=== PATIENT | female | born 1945 | race Caucasian/White ===

== ENCOUNTER → 2016-11-29 | Outpatient (CLI) | payer OTHER, MEDICARE ==
[~2016-11-29] MED LIST: AMLO-110 PO; CARV6.252 PO; CHOL100010 PO; COEN75CA PO; CPROT OPL; CTPTP2 TOP; CYAN10005 PO; HYDR-4715 PO; MISCCAP80 PO; PRED1SUS3 OPL; [UNRECOGNIZED DRUG - CODE] OPL; [UNRECOGNIZED DRUG - OTHER] PO
[2016-11-29 11:46] LABS: BASO % 0.5 %; BASO ABS # 0.03 K/uL (0-0.2); COMPLETE YES; EOS % 3.2 %; HEMATOCRIT 38.8 % (37-47); IG% 0.3 %; LYMPH % 29.2 %; LYMPH ABS # 1.81 K/uL (1.2-3.4); MEAN CELL VOLUME 89.4 fL (80-100); MEAN CORPUSCULAR HGB CONC 32.5 g/dl (32-36); MEAN PLATELET VOLUME 9.9 fL (7.4-10.4); MONO % 5.5 %; NEUT % 61.3 %; PLATELET COUNT 268 K/uL (130-400); RED BLOOD COUNT 4.34 M/uL (4.2-5.4)
[2016-11-29 12:30] LABS: ALT/SGPT 27 U/L (12-78); AST/SGOT 23 U/L (15-37); BLOOD UREA NITROGEN 23 mg/dl (7-18); BUN/CREATININE RATIO 22.7 (10-20); CARBON DIOXIDE 29 mmol/L (21-32); CHLORIDE 106 mmol/L (98-107); CHOLESTEROL 242 mg/dl (0-200); GLUCOSE 97 mg/dl (70-99); POTASSIUM 4.2 mmol/L (3.5-5.1); SODIUM 142 mmol/L (136-145); TRIGLYCERIDES 119 mg/dl (0-150); VERY LOW DENSITY LIPOPROT CALC 24 mg/dl
[2016-11-29 12:40] LABS: ALB/GLOB RATIO 1.2 (0.9-2); ALKALINE PHOSPHATASE 51 U/L (45-117); CHOLESTEROL/HDL RATIO 3.8; HDL CHOLESTEROL 63 mg/dl; LDL CHOLESTEROL CALCULATED 155 mg/dl
[2016-11-29 13:19] LABS: CALCIUM 9.7 mg/dl (8.5-10.1)
== END | disposition home or self-care (01) ==
LOC: C.LAB 09:50
PROVIDERS: ATTEND Internal Medicine
DX: I10 Essential (primary) hypertension (principal); E26.9 Hyperaldosteronism, unspecified

== ENCOUNTER → 2016-12-30 | Outpatient (CLI) | payer OTHER, MEDICARE ==
--- NOTE | 2016-12-30 14:43 | MAMMOGRAPHY REPORT ---
BILATERAL DIGITAL SCREENING MAMMOGRAM WITH CAD: 12/30/2016 CLINICAL HISTORY: Routine screening. Patient has no complaints. TECHNIQUE: Current study was also evaluated with a Computer Aided Detection (CAD) system. Bilateral CC and MLO views were obtained. COMPARISON: Comparison is made to exams dated: 12/30/2015 mammogram, 12/26/2014 mammogram, 12/25/2013 m ammogram, 12/21/2012 mammogram, 12/21/2011 mammogram, and 12/17/2010 mammogram - [facility] er. BREAST COMPOSITION: There are scattered areas of fibroglandular density in both breasts. FINDINGS: No suspicious masses, calcifications, or areas of architectural distortion are noted in ei ther breast. There has been no significant interval change compared to prior exams. Benign-appearing 13 mm mass in the right lower inner quadrant is stable dating back to the 2007 exam. 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 IMPRESSION: ACR BI-RADS CATEGORY 2: BENIGN There is no mammographic evidence of malignancy. A 1 year screening mammogram is recommended. The pa tient will receive written notification of the results. Approximately 10% of breast cancers are not detected with mammography. A negative mammographic report should not delay biopsy if a clinically suggestive mass is present. Peggy Santacruz M.D. /:12/30/2016 12:24:32 Director Corporate Sales: Marianne SIMPSON(Mike)(Marlys)([place]), [facility] letter sent: Normal 1/2 BI-RADS Code: ACR BI-RADS Category 2: Benign
== END | disposition home or self-care (01) ==
LOC: C.MAMM 09:40
PROVIDERS: ATTEND Physician Assistant
DX: Z12.31 Encounter for screening mammogram for malignant neoplasm of breast (principal)

== ENCOUNTER → 2018-01-16 | Outpatient (CLI) | payer OTHER, MEDICARE ==
[~2018-01-16] MED LIST changes: -AMLO-110 PO; +AMLO5TAB3 PO
--- NOTE | 2018-01-17 07:48 | MAMMOGRAPHY REPORT ---
UNILATERAL RIGHT DIGITAL DIAGNOSTIC MAMMOGRAM TOMOSYNTHESIS AND TARGETED RIGHT ULTRASOUND: 01/16/2018 CLINICAL HISTORY: 72-year-old woman called back from screening mammography for a possible area of arc hitectural distortion in the lateral, posterior right breast only seen in the CC projection. TECHNIQUE: Spot compression right CC and MLO tomosynthesis images were obtained. COMPARISON: Comparison is made to exams dated: 01/03/2018 mammogram, 12/30/2016 mammogram, 12/30/2015 m ammogram, 12/26/2014 mammogram, 12/25/2013 mammogram, and 12/21/2012 mammogram - [facility]. BREAST COMPOSITION: There are scattered areas of fibroglandular density in the right breast. FINDINGS: There is subtle persistent area of architectural distortion in the lateral, posterior righ t breast on the CC tomosynthesis images (slice 35/75), which centrally measures 6 mm but the maximum dimension is 2.5 cm including the distortion spicules. No definitive corresponding abnormality is se en on the spot compression MLO tomosynthesis images. Further evaluation with ultrasound was performe d. There is a stable benign circumscribed mass in the lower inner right breast and a stable grouping of coarse heterogeneous calcifications in the right upper outer quadrant. Targeted ultrasound performed throughout the lateral right breast demonstrates sonographically normal tissue without evidence of a suspicious solid or cystic mass. No architectural distortion is apprec iated in real-time ultrasound scanning. IMPRESSION: ACR BI-RADS CATEGORY 4: SUSPICIOUS, TARGETED ULTRASOUND ACR BI-RADS CATEGORY 4: SUSPICIO US 1. There is probable persistent architectural distortion in the lateral, posterior right breast only seen on the CC tomosynthesis images, without sonographic correlate identified. This finding remains suspicious, given that the patient has had no prior breast surgery and definitive characterization w ith a stereotactic tomosynthesis guided biopsy is recommended. These results and recommendations were discussed with the patient at the time of the exam. She tenta tively scheduled the right breast stereotactic tomosynthesis biopsy prior to leaving our department. Approximately 10% of breast cancers are not detected with mammography. A negative mammographic report should not delay biopsy if a clinically suggestive mass is present. Patti La M.D. ay/:01/16/2018 12:37:25 Technical Lead: Kraen SIMPSON(R)(M), [facility] letter sent: Abnormal 4/5 BI-RADS Code: ACR BI-RADS Category 4: Suspicious Ultrasound BI-RADS: ACR BI-RADS Category 4: Suspici ous
--- NOTE | 2018-02-17 10:17 | CODING QUERY NO DIAGNOSIS ---
TREATMENT RENDERED WITHOUT A DIAGNOSIS To promote full compliance with coding requirements relating to patient care, physician participation is requested in all cases of genetic physician uncertainty. Please assist us with providing a diagnosis/symptom for the test(s) below: A diagnosis/symptom was not documented on your Order. A valid diagnosis/symptom is required to bill all insurances. Please remember that we are unable to code a diagnosis of rule out, probable, possible, questionable, or suspected. Tests that require a diagnosis: DOS: 01/16/18 (Patient Access unable to provide Allscript order) * Diagnostic Right Mammo/Ultrasound DIAGNOSIS: Provider Signature: Date: Thank you Jesica Jett [facility] Information Management Once completed, please kindly fax back to [phone] For questions please call [phone]
== END | disposition home or self-care (01) ==
LOC: C.MAMM 11:00
PROVIDERS: ATTEND Internal Medicine
DX: N64.89 Other specified disorders of breast (principal)